=== PATIENT | male | born 1950 | race Caucasian/White ===

== ENCOUNTER 2018-12-03 13:33 | Outpatient (CLI) | payer MEDICARE ==
[2018-12-03] MEDS ORDERED: CHOL200074 PO (14:12)
[2018-12-03] MEDS ORDERED: METH5TAB2 PO (14:12)
[2018-12-03] MEDS ORDERED: PROP80TA PO (14:12)
[2018-12-03] MEDS ORDERED: OMEG1CAP6 PO (14:12)
[2018-12-03] MEDS ORDERED: MULT-252 PO (14:12)
[2018-12-03] MEDS ORDERED: CALC1CAP8 PO (14:12)
[2018-12-03] MEDS ORDERED: ACYC-114 PO (14:12)
[2018-12-03] MEDS ORDERED: ASPI-496 PO (14:12)
[2018-12-03] MEDS ORDERED: DULO30CA2 PO (14:12)
[2018-12-03] MEDS ORDERED: CARB1TAB48 PO (14:12)
== END 2018-12-03 23:59 | disposition home or self-care (01) ==
LOC: STAR 13:33
PROVIDERS: ATTEND Surgery
DX: Z01.818 Encounter for other preprocedural examination (principal); K80.20 Calculus of gallbladder without cholecystitis without obstruction
CPT/HCPCS: 93005

== ENCOUNTER 2018-12-07 12:57 | Day surgery (SDC) | payer MEDICARE ==
[~2018-12-07] VITALS: Ht 162.6 cm; Wt 66.7 kg
[~2018-12-07 12:57] MED LIST: ACYC-114 PO; ASPI-496 PO; CALC1CAP8 PO; CARB1TAB48 PO; CHOL200074 PO; DULO30CA2 PO; METH5TAB2 PO; MULT-252 PO; OMEG1CAP6 PO; PROP80TA PO
[2018-12-07] MEDS ORDERED: LACTATED RINGERS 1,000 ML IV SCH (13:52)
[2018-12-07 14:17] VITALS: BP 133/83
[2018-12-07] MEDS ORDERED: BUPIVACAINE/EPI 0.5% 1:200K ONE (14:45)
[2018-12-07] MEDS ORDERED: MIDAZOLAM 1 MG/ML, 2ML ONE (15:12)
[2018-12-07] MEDS ORDERED: FENTANYL PF 100 MCG/2ML ONE ×3 (15:12→16:23)
[2018-12-07] MEDS ORDERED: METOCLOPRAMIDE 5 MG/ML, 2ML ONE (15:17)
[2018-12-07] MEDS ORDERED: SUGAMMADEX 200 MG/2 ML IVPush ONE (15:17)
[2018-12-07] MEDS ORDERED: PROPOFOL 10 MG/ML, 20ML ONE (15:17)
[2018-12-07] MEDS ORDERED: ROCURONIUM 10 MG/ML,10ML ONE (15:17)
[2018-12-07] MEDS ORDERED: ONDANSETRON 2MG/ML, 2ML ONE (15:17)
[2018-12-07] MEDS ORDERED: DEXAMETHASONE 4 MG/ML, 1ML ONE (15:17)
[2018-12-07] MEDS ORDERED: CEFAZOLIN 1,000 MG ONE (15:17)
[2018-12-07] MEDS ORDERED: ONDANSETRON 2MG/ML, 2ML IVPush PRN ×2 (16:00→16:30)
[2018-12-07] MEDS ORDERED: OXYcodone 5 MG/5 ML ORAL.SOL UDC PO PRN ×2 (16:00→16:30)
[2018-12-07] MEDS: FENTANYL PF 100 MCG/2ML IV PRN ×2 (16:22→16:28)
[2018-12-07] MEDS ORDERED: OXYcodone 5 MG/5 ML ORAL.SOL UDC ONE (16:24)
[2018-12-07] MEDS ORDERED: MEPERIDINE/PF 25MG/0.5ML IVPush PRN (16:30)
[2018-12-07] MEDS ORDERED: HYDROmorphone 1 MG/ML, 1ML INJ IV PRN (16:30)
[2018-12-07] MEDS ORDERED: LABETALOL 5MG/ML, 20ML IV PRN (16:30)
[2018-12-07] MEDS ORDERED: MIDAZOLAM 1 MG/ML, 2ML IV PRN (16:30)
== END 2018-12-07 18:08 | disposition home or self-care (01) ==
LOC: OUT 12:57
PROVIDERS: ATTEND Surgery
DX: K80.10 Calculus of gallbladder with chronic cholecystitis without obstruction (principal); I10 Essential (primary) hypertension; G25.81 Restless legs syndrome; Z79.82 Long term (current) use of aspirin; Z79.899 Other long term (current) drug therapy; Z88.8 Allergy status to other drugs, medicaments and biological substances; Z87.891 Personal history of nicotine dependence; Z83.3 Family history of diabetes mellitus; Z82.49 Family history of ischemic heart disease and other diseases of the circulatory system; Z80.3 Family history of malignant neoplasm of breast
CPT/HCPCS: 47562; 88304; J0690; J1100; J2250; J2405; J2704; J2765; J3010; J7120